=== PATIENT | female | born 1975 | race American Indian/Alaskan Native ===

== ENCOUNTER 2017-02-21 10:34 | Outpatient (CLI) | payer OTHER | END 2017-02-21 12:23 | disposition home or self-care (01) | LOC: NST 10:34 | DX: Z34.92 Encounter for supervision of normal pregnancy, unspecified, second trimester (principal); O30.002 Twin pregnancy, unspecified number of placenta and unspecified number of amniotic sacs, second trimester ==

== ENCOUNTER 2017-03-12 08:36 | Outpatient (CLI) | payer OTHER | END 2017-03-12 09:15 | disposition home or self-care (01) | LOC: NST 08:36 | DX: O30.002 Twin pregnancy, unspecified number of placenta and unspecified number of amniotic sacs, second trimester (principal); Z34.82 Encounter for supervision of other normal pregnancy, second trimester ==

== ENCOUNTER 2017-03-26 07:53 | Outpatient (CLI) | payer OTHER | END 2017-03-26 08:53 | disposition home or self-care (01) | LOC: NST 07:53 | DX: O30.003 Twin pregnancy, unspecified number of placenta and unspecified number of amniotic sacs, third trimester (principal); Z34.83 Encounter for supervision of other normal pregnancy, third trimester ==

== ENCOUNTER 2017-04-19 08:56 | Outpatient (CLI) | payer OTHER ==
[2017-04-19] MEDS ORDERED: NIFE60TA3 PO (12:59)
[2017-04-19] MEDS ORDERED: IRON325 MG PO (13:00)
== END 2017-04-19 10:56 | disposition still patient (30) ==
LOC: NST 08:56
DX: O30.003 Twin pregnancy, unspecified number of placenta and unspecified number of amniotic sacs, third trimester (principal); Z34.83 Encounter for supervision of other normal pregnancy, third trimester

== ENCOUNTER 2017-04-19 10:54 | Inpatient (IN) | payer OTHER ==
[~2017-04-19] VITALS: Wt 81.6 kg
[2017-04-19] MEDS ORDERED: NIFE60TA3 PO (12:59)
[2017-04-19] MEDS ORDERED: IRON325 MG PO (13:00)
[2017-04-22] MEDS ORDERED: PRENATAL 19 TA1 EACH PO (09:37)
[2017-04-22] MEDS ORDERED: SINGULAIR 10MG10 MG (09:40)
== END 2017-04-21 14:08 | DRG 782 ==
LOC: LDR 10:54 → OB/GYN 10:54
PROC: BY4FZZZ Ultrasonography of Third Trimester, Single Fetus (ICD-10-PCS; principal; 2017-04-19)
PROC: 4A1HXCZ Monitoring of Products of Conception, Cardiac Rate, External Approach (ICD-10-PCS; 2017-04-19)
DX: O30.043 Twin pregnancy, dichorionic/diamniotic, third trimester (principal); Z3A.33 33 weeks gestation of pregnancy

== ENCOUNTER 2017-04-22 08:58 | Inpatient (IN) | payer OTHER ==
[~2017-04-22] VITALS: Ht 165.1 cm; Wt 1.8 kg
[~2017-04-22 08:58] MED LIST: IRON325 MG PO; NIFE60TA3 PO
[2017-04-22] MEDS ORDERED: PRENATAL 19 TA1 EACH PO (09:37)
[2017-04-22] MEDS ORDERED: SINGULAIR 10MG10 MG (09:40)
== END 2017-04-25 17:55 | disposition home or self-care (01) | DRG 775 ==
LOC: OB/GYN 08:58 → LDR 08:58 → OB/GYN 04-23 16:34
PROC: 4A1HXCZ Monitoring of Products of Conception, Cardiac Rate, External Approach (ICD-10-PCS; 2017-04-22)
PROC: 10E0XZZ Delivery of Products of Conception, External Approach (ICD-10-PCS; principal; 2017-04-23)
PROC: 0W8NXZZ Division of Female Perineum, External Approach (ICD-10-PCS; 2017-04-23)
PROC: BY4GZZZ Ultrasonography of Third Trimester, Multiple Gestation (ICD-10-PCS; 2017-04-23)
DX: O60.14X2 Preterm labor third trimester with preterm delivery third trimester, fetus 2 (principal); O30.043 Twin pregnancy, dichorionic/diamniotic, third trimester; Z3A.33 33 weeks gestation of pregnancy; Z37.2 Twins, both liveborn